=== PATIENT | male | born 1960 | race Caucasian/White ===

== ENCOUNTER 2021-09-10 18:02 | Inpatient (IN) | payer OTHER ==
[~2021-09-10] VITALS: Ht 188 cm; Wt 152.4 kg
--- NOTE | 2021-09-10 18:20 | NUR ---
BIBS C/O HEADACHE STARTED LAST SATURDAY, CANNOT FEEL HOT OR COLD ON RIGHT HAND. PT TOOK ADVIL AT HOME, NO RELIEF. PT STATED THAT HEADACHE WAS RELIEVED SHORTLY ON SATURDAY BUT CAME BACK, HEADACHE PAIN MOVES AROUND TO DIFFERENT PARTS OF HIS HEAD. AWAITING MD MELENDEZ.
--- NOTE | 2021-09-10 19:20 | NUR ---
TANYA ESTABLISHED L AC 20G.
--- NOTE | 2021-09-10 19:22 | NUR ---
COVID SWAB DONE AND SENT TO LAB
--- NOTE | 2021-09-10 19:37 | NUR ---
PT DENIES ANY PAIN OR DISCOMFORT AT THIS TIME. ALL NEEDS MET. PT CONNECTED TO POX AND MONITOR. SAFETY MEASURES IN PLACE.
[2021-09-10 19:53] LABS: CALCIUM, SERUM 8.8 mg/dL (8.5-10.1); CREATININE 1.1 mg/dL (0.6-1.3); POTASSIUM 3.9 mmol/L (3.5-5.1)
[2021-09-10 20:13] LABS: BASOPHILS % (AUTO) 0.4 % (0.0-2.0); EOSINOPHILS % (AUTO) 1.3 % (0.0-6.0); HEMATOCRIT 45 % (39-51); HEMOGLOBIN 15.2 g/dL (13.5-17.5); LYMPHOCYTES # (AUTO) 1.6 K/uL (0.8-4.8); LYMPHOCYTES % (AUTO) 18.7 % (20.0-44.0); MEAN CORPUSCULAR HGB CONC 34 g/dl (31.0-36.0); MEAN CORPUSCULAR VOLUME 93 fL (80-96); MONOCYTES # (AUTO) 0.5 K/uL (0.1-1.30); MONOCYTES % (AUTO) 5.8 % (2.0-12.0); NEUTROPHILS # (AUTO) 6.2 K/uL (1.8-8.9); NEUTROPHILS % (AUTO) 73.8 % (43.0-81.0); PLATELET COUNT (AUTO) 155 K/uL (150-450); RED BLOOD CELL COUNT(AUTO) 4.87 MIL/uL (4.5-6.0); WHITE BLOOD COUNT (AUTO) 8.4 K/uL (4.3-11.0)
--- NOTE | 2021-09-10 20:14 | NUR ---
BED 113-1.
[2021-09-10] MEDS ORDERED: INSULIN REGULAR, HUMAN 100 UNIT/ML 3 ML VIAL SQ ONE (20:30)
[2021-09-10] MEDS ORDERED: POTASSIUM CHLORIDE 20 MEQ TAB.PRT.SR PO ONE ×2 (20:30→20:45)
[2021-09-10] MEDS ORDERED: INSULIN REGULAR, HUMAN 100 UNIT/ML 10 ML VIAL ONE (20:45)
--- NOTE | 2021-09-10 21:15 | NUR ---
BS RECHECK S/P 10 UNIT INSULIN: POC BS 504 BP 190/112 NOTIFIED ALFIE; AWAITING NEW ORDERS.
[2021-09-10] MEDS ORDERED: INSULIN REGULAR, HUMAN 100 UNIT/ML 3 ML VIAL IV ONE (21:30)
[2021-09-10] MEDS: hydrALAZINE HCL IV 20 MG VIAL IV PRN (21:32)
--- NOTE | 2021-09-10 21:36 | NUR ---
REPORT GIVEN TO ANNETTE Napier RN FOR JEREMY
--- NOTE | 2021-09-10 21:51 | NUR ---
PT TRANSFERRED TO 113-1 VIA ACLS PROTOCOL. VSS. ALL BELONGINGS WITH PT.
[2021-09-10 22:00] VITALS: BP 157/90
[2021-09-10] MEDS ORDERED: DEXTROSE 50%-WATER 50 ML DISP.SYRIN IV PRN (22:00)
[2021-09-10] MEDS ORDERED: ONDANSETRON HCL/PF 4 MG/2 ML VIAL IVP PRN (22:00)
--- NOTE | 2021-09-10 22:00 | NUR ---
CHRONOMETER ASSEMBLERAPPLIED BEHAVIOR SCIENCE SPECIALIST NOTE PATIENT ARRIVED ON UNIT, ALERT/ORIENTED X 4, PT ABLE TO MAKE NEEDS KNOWN. PT STABLE ON RA, NO S/S OF DISTRESS OR SOB NOTED, BREATHING EVEN AND UNLABORED. PATIENT ON EXTERNAL ADMINISTRATION DEAN READING SINUS RHYTHM, HR: 95. PATIENT IS AMBULATORY AND STEADY TO BATHROOM. IV ACCESS ON LAC #20G INTACT AND FLUSHING WELL. ORIENTED PATIENT TO ROOM AND HOW TO USE REMOTE AND CALL LIGHT. BELONGINGS VERIFIED AND CHECKLIST PLACED IN CHART, PATIENT HAS $145 AND STATED HE DID NOT WANT TO PUT IN SAFE, WANTS TO KEEP WITH HIM. SAFETY MEASURES IN PLACE: CALL LIGHT WITHIN REACH, SIDE RAILS UP X 2, BED LOCKED IN LOWEST POSITION, HOB ELEVATED. WILL CONTINUE TO MONITOR PATIENT
[2021-09-10] MEDS: BLOOD SUGAR DIAGNOSTIC 1 EACH STRIP VI SCH (23:16)
[2021-09-10] MEDS: ENOXAPARIN SODIUM 40 MG/0.4 ML DISP.SYRIN SQ SCH (23:17)
[2021-09-10] MEDS: INSULIN GLARGINE, 100 UNIT/ML CARTRIDGE SQ SCH (23:20)
[2021-09-10] MEDS: *INSULIN REGULAR(HUMULIN R)HUM 100 UNIT/ML VIAL SQ PRN (23:21)
--- NOTE | 2021-09-10 23:30 | NUR ---
DISPATCH LEAD NOTE PATIENT'S BLOOD SUGAR 423, WILL GIVEN 10 UNITS LANTUS AND 10 UNITS REGULAR PER ORDER. NOTIFIED FIELD CROP FARM WORKER MD, NO NEW ORDERS
[2021-09-11] VITALS: BP 145/87
[2021-09-11 04:00] VITALS: BP 134/94
[2021-09-11 06:21] LABS: BASOPHILS # (AUTO) 0.1 K/uL (0.0-0.2); BASOPHILS % (AUTO) 1.4 % (0.0-2.0); EOSINOPHILS % (AUTO) 1.4 % (0.0-6.0); HEMATOCRIT 44 % (39-51); HEMOGLOBIN 15.2 g/dL (13.5-17.5); LYMPHOCYTES # (AUTO) 3.1 K/uL (0.8-4.8); LYMPHOCYTES % (AUTO) 30.1 % (20.0-44.0); MEAN CORPUSCULAR HGB CONC 35 g/dl (31.0-36.0); MEAN CORPUSCULAR VOLUME 89 fL (80-96); MONOCYTES # (AUTO) 0.7 K/uL (0.1-1.30); MONOCYTES % (AUTO) 6.5 % (2.0-12.0); NEUTROPHILS # (AUTO) 6.3 K/uL (1.8-8.9); NEUTROPHILS % (AUTO) 60.6 % (43.0-81.0); PLATELET COUNT (AUTO) 168 K/uL (150-450); RED BLOOD CELL COUNT(AUTO) 4.91 MIL/uL (4.5-6.0); WHITE BLOOD COUNT (AUTO) 10.4 K/uL (4.3-11.0)
--- NOTE | 2021-09-11 06:49 | NUR ---
PRIZE JACKER CLOSING NOTE PATIENT SLEEPING IN BED, ALERT/ORIENTED X 4, PT ABLE TO MAKE NEEDS KNOWN. PT STABLE ON RA, NO S/S OF DISTRESS OR SOB NOTED, BREATHING EVEN AND UNLABORED. PATIENT ON EXTERNAL MOTORCYCLE RACER READING SINUS RHYTHM, HR: 77. MEDICATIONS GIVEN ORDERED, PT NEEDS MET THROUGHOUT SHIFT, FLUIDS AND SNACK PROVIDED. SBP KEPT < 150. SAFETY MEASURES IN PLACE: CALL LIGHT WITHIN REACH, SIDE RAILS UP X 2, BED LOCKED IN LOWEST POSITION, HOB ELEVATED. WILL ENDORSE TO DAY SHIFT NURSE FOR CONTINUITY OF CARE
[2021-09-11 07:11] LABS: CALCIUM, SERUM 8.8 mg/dL (8.5-10.1); CREATININE 0.8 mg/dL (0.6-1.3); MAGNESIUM 1.9 mg/dL (1.8-2.4); PHOSPHORUS 3.5 mg/dL (2.5-4.9); POTASSIUM 3.9 mmol/L (3.5-5.1)
--- NOTE | 2021-09-11 07:30 | NUR ---
INTERNET MARKETING CONSULTANT OPENING NOTE RECEIVED PATIENT IN BED, AWAKE, A/O X 4. PT ABLE TO MAKE NEEDS KNOWN. PT STABLE ON RA, NO S/S OF DISTRESS OR SOB NOTED, BREATHING EVEN AND UNLABORED. PATIENT ON EXTERNAL QUALITY AND RELIABILITY ENGINEER READING SINUS RHYTHM, HR: 81. NO COMPLAINS OF PAIN AT THIS TIME. SAFETY MEASURES IN PLACE: CALL LIGHT WITHIN REACH, SIDE RAILS UP X 2, BED LOCKED IN LOWEST POSITION, HOB ELEVATED. WILL CONTINUE TO MONITOR PATIENT.
[2021-09-11] MEDS: BLOOD SUGAR DIAGNOSTIC 1 EACH STRIP VI SCH ×4 (07:31→21:33)
[2021-09-11] MEDS: ASPIRIN 81 MG TAB.CHEW PO SCH (08:12)
[2021-09-11] MEDS: INSULIN REGULAR, HUMAN 100 UNIT/ML 3 ML VIAL SQ PRN ×3 (08:16→17:56)
[2021-09-11 09:25] VITALS: BP 144/95
[2021-09-11 13:22] VITALS: BP 160/98
[2021-09-11] MEDS: ACETAMINOPHEN 325 MG TABLET PO PRN (13:46)
--- NOTE | 2021-09-11 13:48 | NUR ---
LEHR CUTTER NOTES PATIENT COMPLAINING OF HEADACHE; REQUESTING PAIN MEDICATION. PEN TYLENOL ADMINISTERED. WILL REASSESS.
[2021-09-11] MEDS: METFORMIN 500 MG TABLET PO SCH (16:20)
[2021-09-11 17:08] VITALS: BP 160/96
--- NOTE | 2021-09-11 18:48 | NUR ---
EMS HELICOPTER PILOT CLOSING NOTE PATIENT REMAINS IN BED, AWAKE, A/O X 4. PT ABLE TO MAKE NEEDS KNOWN DURING SHIFT. PT STABLE ON RA, NO S/S OF DISTRESS OR SOB NOTED DURING THE DAY, BREATHING EVEN AND UNLABORED. PATIENT ON EXTERNAL HEAD TEACHER READING SINUS RHYTHM, HR: 80S. PAIN TREATED WITH PRN PAIN MEDICATION PER MD ORDER. ALL NEEDS ATTENDED DURING THE DAY. SAFETY MEASURES IN PLACE: CALL LIGHT WITHIN REACH, SIDE RAILS UP X 2, BED LOCKED IN LOWEST POSITION, HOB ELEVATED. WILL ENDORSE TO MAIL HANDLERS SUPERVISOR NURSE.
--- NOTE | 2021-09-11 19:07 | NUR ---
MS RN OPENING NOTE RECEIVED PT AWAKE IN BED. A/O X 4 AND ABLE TO MAKE NEEDS KNOWN. PT STABLE ON RA. NO SOB OR S/S OF RESPIRATORY DISTRESS. BREATHING EVEN AND UNLABORED. SAFETY PRECAUTIONS IN PLACE. BED IN LOWEST LOCKED POSITION, HOB ELEVATED, SIDE RAILS UP X2, AND CALL LIGHT AND TABLE WITHIN REACH. ALL NEEDS MET AT THIS TIME.
[2021-09-11 20:00] VITALS: BP 150/86
[2021-09-11] MEDS: ENOXAPARIN SODIUM 40 MG/0.4 ML DISP.SYRIN SQ SCH (21:32)
[2021-09-11] MEDS: *INSULIN REGULAR(HUMULIN R)HUM 100 UNIT/ML VIAL SQ PRN (21:34)
[2021-09-11] MEDS: INSULIN GLARGINE, 100 UNIT/ML CARTRIDGE SQ SCH (21:36)
[2021-09-11] MEDS ORDERED: ATORVASTATIN 10 MG TABLET PO SCH (22:00)
[2021-09-12 05:00] VITALS: BP 155/104
[2021-09-12] MEDS: hydrALAZINE HCL IV 20 MG VIAL IV PRN ×2 (05:25→11:17)
--- NOTE | 2021-09-12 05:25 | NUR ---
RN NOTE PT BP 155/[address] JUAREZ, KEEP SBP < 150. ADMINISTERED HYDRALAZINE 10 MG ORDERED. CHARGE NURSE JOHANNA MORALES.
--- NOTE | 2021-09-12 06:33 | NUR ---
MS RN CLOSING NOTE PT AWAKE IN BED. A/O X 4 AND ABLE TO MAKE NEEDS KNOWN. PT STABLE ON RA. NO SOB OR S/S OF RESPIRATORY DISTRESS. BREATHING EVEN AND UNLABORED. IV ACCESS LAC 20 GAUGE SL, INTACT AND PATENT. ALL DUE MEDS GIVEN ORDERED. SAFETY PRECAUTIONS IN PLACE. BED IN LOWEST LOCKED POSITION, HOB ELEVATED, SIDE RAILS UP X2, AND CALL LIGHT AND TABLE WITHIN REACH. ALL NEEDS MET AT THIS TIME AND WILL ENDORSE TO ONCOMING NURSE.
[2021-09-12 07:23] LABS: CALCIUM, SERUM 8.9 mg/dL (8.5-10.1); CREATININE 0.8 mg/dL (0.6-1.3); PHOSPHORUS 3.4 mg/dL (2.5-4.9); POTASSIUM 3.9 mmol/L (3.5-5.1)
--- NOTE | 2021-09-12 07:30 | NUR ---
RN OPENING NOTE PATIENT IS IN BED, AWAKE ALERT ORIENTED X 4. ON ROOM AIR, DENIES PAIN, NOT IN ANY FORM OF RESPIRATORY DISTRESS. WITH LEFT ANTECUBITAL SALINE LOCK GAUGE 20, INTACT AND PATENT. BED IS LOCKED IN THE LOWEST POSITION, 3 GUARD RAILS RAISED, CALL HOLLIDAY WITHIN REACH, AND ALL HOSPITAL SAFETY PRECAUTIONS ARE IN PLACE. WILL CONTINUE TO MONITOR THROUGHOUT SHIFT.
[2021-09-12] MEDS: BLOOD SUGAR DIAGNOSTIC 1 EACH STRIP VI SCH ×2 (07:35→11:27)
[2021-09-12] MEDS: *INSULIN REGULAR(HUMULIN R)HUM 100 UNIT/ML VIAL SQ PRN ×2 (07:39→11:30)
[2021-09-12 07:49] LABS: BASOPHILS # (AUTO) 0.1 K/uL (0.0-0.2); BASOPHILS % (AUTO) 0.7 % (0.0-2.0); EOSINOPHILS % (AUTO) 1.7 % (0.0-6.0); HEMATOCRIT 46 % (39-51); LYMPHOCYTES # (AUTO) 3.7 K/uL (0.8-4.8); LYMPHOCYTES % (AUTO) 32.5 % (20.0-44.0); MEAN CORPUSCULAR HGB CONC 35 g/dl (31.0-36.0); MEAN CORPUSCULAR VOLUME 89 fL (80-96); MONOCYTES # (AUTO) 0.8 K/uL (0.1-1.30); MONOCYTES % (AUTO) 6.7 % (2.0-12.0); NEUTROPHILS # (AUTO) 6.6 K/uL (1.8-8.9); NEUTROPHILS % (AUTO) 58.4 % (43.0-81.0); PLATELET COUNT (AUTO) 205 K/uL (150-450); RED BLOOD CELL COUNT(AUTO) 5.17 MIL/uL (4.5-6.0); WHITE BLOOD COUNT (AUTO) 11.3 K/uL (4.3-11.0)
[2021-09-12] MEDS: ASPIRIN 81 MG TAB.CHEW PO SCH (08:35)
[2021-09-12] MEDS: METFORMIN 500 MG TABLET PO SCH (08:35)
--- NOTE | 2021-09-12 10:10 | NUR ---
PATIENTS WEIGHT EXCEEDS THE TABLE WEIGHT.
--- NOTE | 2021-09-12 11:20 | NUR ---
RN NOTE PATIENT VERBALIZED DULL HEADACHE. FACIAL FLUSHING NOTED ON PATIENT. BP CHECKED MANUALLY, 180/100. HYDRALAZINE PRN FOR HYPERTENSION GIVEN ORDERED. WILL RECHECK BP AFTER 30 MIN.
[2021-09-12] MEDS ORDERED: LISI20TA30 PO (12:23)
[2021-09-12] MEDS ORDERED: METF-440 PO (12:23)
[2021-09-12] MEDS ORDERED: GLIP5TAB13 PO (12:23)
[2021-09-12 13:00] VITALS: BP 158/88
[2021-09-12] MEDS: ACETAMINOPHEN 325 MG TABLET PO PRN (13:41)
--- NOTE | 2021-09-12 14:34 | NUR ---
RN CLOSING NOTE PATIENT DISCHARGED TO HOME IN STABLE CONDITION. DISCHARGE INSTRUCTIONS GIVEN AND EXPLAINED TO PATIENT. VERBALIZED UNDERSTANDING. ALL FORMS SIGNED AND COMPLETED. ALL BELONGINGS SENT. SALINE LOCK REMOVED, CATHETER TIP COMPLETE AND INTACT. NO COMPLICATIONS NOTED. PATIENT LEFT THE UNIT IN STABLE CONDITION ACCOMPANIED BY AUGUSTA LUTHER TO HOSPITAL LOBBY. DISCHARGE V/S: TEMP 98.7, HR 88, RR 18 OXYGEN SATURATION AT 94% AND BP OF 151/89,
== END 2021-09-12 14:40 | disposition home or self-care (01) | DRG 304 ==
LOC: ER 18:05 → TELE1 20:17 → MEDSG1 09-11 07:03
PROVIDERS: ADMIT Nurse Practitioner Acute Care
DX: I16.0 Hypertensive urgency (principal); E11.00 Type 2 diabetes mellitus with hyperosmolarity without nonketotic hyperglycemic-hyperosmolar coma (NKHHC); E87.1 Hypo-osmolality and hyponatremia; D68.59 Other primary thrombophilia; Z68.41 Body mass index [BMI] 40.0-44.9, adult; Z20.822 Contact with and (suspected) exposure to COVID-19; E11.40 Type 2 diabetes mellitus with diabetic neuropathy, unspecified; E11.65 Type 2 diabetes mellitus with hyperglycemia; E66.01 Morbid (severe) obesity due to excess calories; I10 Essential (primary) hypertension; E78.5 Hyperlipidemia, unspecified
CPT/HCPCS: 36415; 70450-TC; 71045-TC; 80048-TC; 80061-TC; 82962-TC; 83735-TC; 83880; 84100-TC; 84443-TC; 84484-TC; 85025-TC; 87081-TC; 92526; 92611-TC; C9803; G0378; J0360; J1650; J1815